=== PATIENT | female | born 1960 ===

== ENCOUNTER 2018-04-06 08:48 | Outpatient (CLI) | payer OTHER | END 2018-04-06 08:56 | disposition home or self-care (01) | LOC: MAMO-SONO 08:48 | DX: N60.11 Diffuse cystic mastopathy of right breast (principal); Z12.31 Encounter for screening mammogram for malignant neoplasm of breast ==

== ENCOUNTER 2018-04-20 08:33 | Outpatient (CLI) | payer OTHER | END 2018-04-20 08:36 | disposition home or self-care (01) | LOC: SONOGRAMA 08:33 | DX: R10.31 Right lower quadrant pain (principal); R10.32 Left lower quadrant pain ==

== ENCOUNTER 2020-05-13 08:27 | Outpatient (CLI) | payer OTHER | END 2020-05-13 08:37 | disposition home or self-care (01) | LOC: MAMO-SONO 08:27 | PROVIDERS: ATTEND Obstetrics & Gynecology | DX: N60.11 Diffuse cystic mastopathy of right breast (principal) ==

== ENCOUNTER 2022-07-27 07:47 | Outpatient (CLI) | payer OTHER | END 2022-07-27 07:54 | disposition home or self-care (01) | LOC: SONOGRAMA 07:47 | PROVIDERS: ATTEND Internal Medicine Gastroenterology | DX: R10.11 Right upper quadrant pain (principal); R10.12 Left upper quadrant pain ==

== ENCOUNTER 2022-10-06 07:23 | Outpatient (CLI) | payer OTHER | END 2022-10-06 07:38 | disposition home or self-care (01) | LOC: RX STUDY 07:23 | PROVIDERS: ATTEND Internal Medicine Gastroenterology | DX: R13.0 Aphagia (principal); R10.13 Epigastric pain ==

== ENCOUNTER 2022-11-02 07:14 | Outpatient (CLI) | payer OTHER | END 2022-11-02 07:30 | disposition home or self-care (01) | LOC: SONOGRAMA 07:14 | PROVIDERS: ATTEND Internal Medicine Gastroenterology | DX: K82.4 Cholesterolosis of gallbladder (principal) ==

== ENCOUNTER 2022-11-03 07:58 | Outpatient (CLI) | payer OTHER | END 2022-11-03 08:15 | disposition home or self-care (01) | LOC: TOM 07:58 | PROVIDERS: ATTEND Internal Medicine Gastroenterology | DX: R10.13 Epigastric pain (principal); R10.12 Left upper quadrant pain ==

== ENCOUNTER 2024-06-27 07:00 | Outpatient (CLI) | payer OTHER | END 2024-06-27 07:14 | disposition home or self-care (01) | LOC: TOM 07:00 | PROVIDERS: ATTEND Internal Medicine Gastroenterology | DX: R10.13 Epigastric pain (principal); R10.33 Periumbilical pain; R63.4 Abnormal weight loss ==